=== PATIENT | male | born 1980 | race Caucasian/White ===

== ENCOUNTER → 2023-03-23 10:33 | Outpatient (CLI) | payer MEDICAID, SELFPAY ==
--- NOTE | 2023-03-23 10:38 | XR_ITS ---
FINAL REPORT CLINICAL HISTORY: SOA, smoker FINDINGS: There is no evidence of effusion or other pleural disease. The mediastinum has a normal appearance. The cardiac silhouette is unremarkable. IMPRESSION: Unremarkable chest exam. Reviewed, Interpreted and Dictated by Corky Monreal MD Transcribed by Marlin Ann Authenticated and [facility]
[2023-03-23 13:20] LABS: Basophils % 0.6 % (0.1-2.0); Eosinophils # 0.6 K/mm3 (0.0-0.4); Eosinophils % 9.1 % (0.1-12.0); Hemoglobin 16.1 g/dL (14.1-18.0); Lymphocytes # 1.3 K/mm3 (0.7-4.5); Lymphocytes % 21.9 % (10-50); Mean Corpuscular HGB Conc 32.3 g/dL (31.8-35.4); Mean Corpuscular Volume 89.8 fl (80-94); Mean Platelet Volume 9.3 fl (7.4-10.4); Monocytes # 0.5 K/mm3 (0.1-1.0); Monocytes % 7.9 % (1.7-9.3); Neutrophils # 3.7 K/mm3 (1.8-7.8); Neutrophils % 60.6 % (37.0-80.0); Platelet Count 242 K/mm3 (142-424); Red Blood Count 5.57 M/mm3 (4.60-6.20); Red Cell Distribution Width 13.3 % (11.5-17.5)
[2023-03-23 13:40] LABS: Alanine Aminotransferase 32 U/L (12-78); Albumin Level 4.6 g/dl (3.5-5.0); Albumin/Globulin Ratio 1.7 (1.1-1.8); Alkaline Phosphatase 69 U/L (38-126); Anion Gap 15.4 mEq/L (5-15); Aspartate Amino Transferase 39 U/L (17-59); Bilirubin,Total 0.4 mg/dl (0.2-1.3); Blood Urea Nitrogen 12 mg/dl (9-20); Carbon Dioxide 28 mmol/L (22.0-30.0); Chloride 104 mmol/L (98-107); Chol/HDL Ratio 2.9 (1-3.5); Cholesterol 169 mg/dl (140-200); Estimated Glomerular Filt Rate 93 ml/min (>60); GFR (African American) 113 ML/MIN (>60); Globulin 2.7 g/dL (1.3-3.2); Glucose 68 mg/dl (74-100); HDL Cholesterol 58 mg/dl (40-60); Potassium 4.4 mmoL/L (3.5-5.1); Sodium 143 mmol/L (136-145); Total Protein,Serum 7.3 g/dl (6.3-8.2); Triglycerides 147 mg/dl (30-150); VLDL Cholesterol 29 mg/dL (0-40)
[2023-03-23 13:50] LABS: Direct LDL Cholesterol 77.02 mg/dL (100-129)
[2023-03-23 13:56] LABS: 25-OH Vitamin D, Total 27.5 ng/mL (30-100)
[2023-03-23 14:10] LABS: Thyroid Stimulating Hormone 0.87 uIU/mL (0.465-4.68)
[2023-03-30 00:12] LABS: Free Testosterone (Direct) 9.9 pg/mL (6.8-21.5); Testosterone, Total, LC/MS 228.4 ng/dL (264.0-916.0)
== END ==
PROVIDERS: PCP Nurse Practitioner Family; Visit Provider Nurse Practitioner Family
DX: R06.02 Shortness of breath (principal); R68.89 Other general symptoms and signs; R53.83 Other fatigue; E55.9 Vitamin D deficiency, unspecified; E29.1 Testicular hypofunction
CPT/HCPCS: 71046; 80053; 80061; 82306; 84443; 85025

== ENCOUNTER → 2023-03-23 13:08 | Outpatient (CLI) | payer MEDICAID, SELFPAY | PROVIDERS: PCP Nurse Practitioner Family; Visit Provider Nurse Practitioner Family | DX: R68.89 Other general symptoms and signs (principal) ==

== ENCOUNTER 2023-07-12 16:56 | Emergency (ER) | payer BC, MEDICAID, SELFPAY ==
--- NOTE | 2023-07-12 17:07 | XR_ITS ---
PROCEDURE INFORMATION: Exam: XR Right Ribs with PA Chest Exam date and time: 07/12/2023 5:09 PM Age: 43 years old Clinical indication: Other: Right rib pain TECHNIQUE: Imaging protocol: Radiologic exam of the right ribs with PA chest. Views: 3 views COMPARISON: CR XR CHEST 2V 03/23/2023 10:39 AM FINDINGS: Lungs: Unremarkable. No consolidation. Pleural spaces: Unremarkable. No pleural effusion. No pneumothorax. Heart/Mediastinum: Unremarkable. No cardiomegaly. Bones/joints: No displaced rib fracture. IMPRESSION: 1. No acute pulmonary findings. 2. No displaced rib fracture.
[2023-07-12 17:15] VITALS: BP 129/84; PULSE 64; RESP 18; TEMP 36.7; O2SAT 98; BMI 33.5
--- NOTE | 2023-07-12 17:47 | EXP.UTC ---
Discharge Plan Disposition Patient Disposition: Home, Self-Care Condition: Good Prescriptions Prescriptions: New azithromycin [Zithromax] 250 mg tablet See Rx Instructions PO .COMPLEX Qty: 6 0RF Rx Instructions: For 250 mg dose pack: take 500 mg today (day 1), then 250 mg for 4 days (days 2-5) No Action albuterol sulfate [Ventolin HFA] 90 mcg/actuation HFA aerosol inhaler inhalation Patient Comments: INHALE 1 TO 2 PUFFS EVERY 4 TO 6 HOURS NEEDED FOR COUGH/SHORTNESS OF BREATH Vivitrol 380 mg suspension,extended rel recon 380 mg IM MONTHLY Referrals Follow up/Referrals: Mehrdad Handy APRN [Primary Care Provider] - See instructions Activity Restrictions/Add. Instructions Additional Instructions/Restrictions: Start antibiotic today. Be sure to complete entire prescription even if feeling better Tylenol and ibuprofen as needed for pain or fever Humidifier/vaporizer/hot steamy shower Follow-up with primary care tomorrow. Follow-up immediately in the ER of the [facility] for new or worsening symptoms or no noticeable improvement over the next 48-72 hours. Stop smoking Clinical Impressions Clinical Impression: Contusion of rib on right side Qualifiers: Encounter type: initial encounter Qualified Code(s): S20.211A - Contusion of right front wall of thorax, initial encounter Instructions Patient Instructions: DI for Rib Contusion Discharge ED Provider: Elodia ([facility] [place] HPI General Stated complaint: SOA, rib pain Mode of Arrival: Ambulatory Source of Information: Patient Limitations: No Limitations Time Seen by Provider: 07/12/23 17:47 Description of Symptoms (Recalled from Triage Doc. by RN): Pt was lifting weight on the leg press and it came down to his chest and he heard a pop on the right side rib pain. HEENT Symptoms (Recalled from RN notes): No Resp Symptoms (Recalled from RN notes): No Skin Symptoms (Recalled from RN notes): No MS Symptoms (Recalled from RN notes): Yes Functional Status (Recalled from RN notes): n/a History of Present Illness Provider Complaint: 43 yr old male presents for rib pain and coughing.Pt was lifting weight on the leg press and it came down to his chest and he heard a pop on the right side rib pain. pt states he now is coughing up sputum and it has changed colors. Related Data Home Medications Medication Instructions Recorded Confirmed albuterol sulfate 90 mcg/actuation ea inhalation 02/13/23 03/23/23 aerosol inhaler (Ventolin HFA) naltrexone microspheres 380 mg 380 mg IM MONTHLY alcohol 07/12/23 07/12/23 intramuscular suspension,extended release (Vivitrol) Previous Rx's Medication Instructions Recorded azithromycin 250 mg tablet See Rx Instructions PO .COMPLEX #6 07/12/23 (Zithromax) tabs Allergies Allergy/AdvReac Type Severity Reaction Status Date / Time No Known Allergies Allergy Verified 07/12/23 17:33 Worker's Comp Is this a Worker's Comp case?: No [facility] Disclaimer: The information contained in this section may have been updated after the patient was seen, as this information can be updated by other users. Family History (Reviewed 07/12/23 @ 17:49 by Carlton Clifton ([facility]), [employer]) Diabetes Cancer Social History (Reviewed 07/12/23 @ 17:49 by Carlton Clifton ([facility]), [employer]GER) Smoking Status: Current every day smoker alcohol intake: former year quit: 2022 current occupational status: employed Travel in the last 8 weeks: None ROS Obtained: Yes All systems reviewed & no additional complaints except as documented Constitutional Constitutional: Reports system reviewed and no additional complaints, except as documented and Reports as per HPI Eyes Eyes: Reports system reviewed and no additional complaints, except as documented ENT Ears, Nose, Mouth, and Throat: Reports system reviewed and no additional complaints, except as documented Cardiovascular Cardiovascular: Reports system reviewed an
[2023-07-12 18:04] VITALS: BP 129/84; PULSE 64; RESP 18; TEMP 36.7; O2SAT 98
== END 2023-07-12 18:03 | disposition home or self-care (01) ==
PROVIDERS: Emergency Provider Nurse Practitioner Family; PCP Nurse Practitioner Family
DX: S20.211A Contusion of right front wall of thorax, initial encounter (principal); F17.210 Nicotine dependence, cigarettes, uncomplicated; W20.8XXA Other cause of strike by thrown, projected or falling object, initial encounter
CPT/HCPCS: 71101; 99204; 99212; G0463

== ENCOUNTER 2025-07-22 20:36 | Emergency (ER) | payer SELFPAY ==
[2025-07-22 20:41] VITALS: BP 159/85; PULSE 81; RESP 18; TEMP 36.8; O2SAT 96; BMI 33.7
--- NOTE | 2025-07-22 20:50 | PC.NURSE ---
Pt awake alert and oriented Skin pink warm and dry Resp full and easy Speech clear and appropriate Report received from Laney SARAH
--- NOTE | 2025-07-22 20:58 | XR_ITS ---
PROCEDURE INFORMATION: Exam: XR Left Wrist Trauma Exam date and time: 07/22/2025 9:09 PM Age: 45 years old Clinical indication: Injury or trauma; Fall; Blunt trauma (contusions or hematomas); Wrist; Left; Additional info: Fall 1wk ago, left forearm pain TECHNIQUE: Imaging protocol: Radiologic exam of the left wrist. Views: 3 or more views. Trauma. COMPARISON: 1. CR XR WRIST LT MIN 3V 07/22/2025 9:09 PM 2. Subtle cortical irregularity in the radial styloid, seen only on the oblique view. FINDINGS: Bones/joints: Subtle cortical irregularity in the radial styloid, seen only on the oblique view. Soft tissues: Normal. No abnormal calcifications. IMPRESSION: Subtle cortical irregularity in the radial styloid, seen only on the oblique view. Suspicious for possible nondisplaced fracture. Consider MRI evaluation if clinically warranted.
--- NOTE | 2025-07-22 20:58 | XR_ITS ---
PROCEDURE INFORMATION: Exam: XR Left Forearm Trauma Exam date and time: 07/22/2025 9:28 PM Age: 45 years old Clinical indication: Pain; Lower or forearm; Left; Additional info: Fall 1wk ago, left forearm pain TECHNIQUE: Imaging protocol: Radiologic exam of the left forearm. Views: 2 views. Trauma. COMPARISON: CR XR WRIST LT MIN 3V 07/22/2025 9:09 PM FINDINGS: Bones/joints: Normal. No acute fracture. No dislocation. Soft tissues: Dermal thickening and calcification in the dorsal soft tissues of the mid forearm. IMPRESSION: 1. No acute osseous abnormality. 2. Dermal thickening and calcification in the dorsal soft tissues of the mid forearm. Possibly representing a dermatologic lesion. Foreign body could have a similar appearance. Correlate clinically.
--- NOTE | 2025-07-22 20:58 | XR_ITS ---
PROCEDURE INFORMATION: Exam: XR Left Elbow Trauma Exam date and time: 07/22/2025 9:28 PM Age: 45 years old Clinical indication: Pain; Elbow; Left; Additional info: Fall 1wk ago, left forearm pain TECHNIQUE: Imaging protocol: Radiologic exam of the left elbow. Views: 3 or more views, Trauma. COMPARISON: CR XR WRIST LT MIN 3V 07/22/2025 9:09 PM FINDINGS: Bones/joints: Normal. No acute fracture. No dislocation. Soft tissues: Normal. No abnormal calcifications. IMPRESSION: No acute findings.
[2025-07-22] MEDS: IBUPROFEN 600 MG TABLET PO (21:07)
[2025-07-22] MEDS: ACETAMINOPHEN 500MG TAB 1000 MG PO (21:07)
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
[2025-07-22 23:02] VITALS: BP 150/80; PULSE 80; RESP 20; TEMP 36.7; O2SAT 96
== END 2025-07-22 23:07 | disposition home or self-care (01) ==
PROVIDERS: Emergency Provider Student in an Organized Health Care Education/Training Program
DX: S59.912A Unspecified injury of left forearm, initial encounter (principal); M25.522 Pain in left elbow; M79.632 Pain in left forearm; W19.XXXA Unspecified fall, initial encounter
CPT/HCPCS: 73080; 73090; 73110; 99283